=== PATIENT | male | born 1960 | race Two or more races ===

== ENCOUNTER 2021-05-18 06:26 | Observation (INO) | payer OTHER ==
[2021-05-17 13:26] LABS: COVID AG,FIA SOURCE NASOPHARYNGEAL
[2021-05-17 13:28] LABS: BASOPHILS % (AUTO) 0.6 % (0.0-2.0); EOSINOPHILS % (AUTO) 1.6 % (1.0-6.0); HEMATOCRIT 43.9 % (41-53); HEMOGLOBIN 14.9 g/dL (13.5-17.5); LYMPHOCYTES # (AUTO) 1.5 K/uL (1.0-4.8); LYMPHOCYTES % (AUTO) 26.2 % (22.0-44.0); MEAN CORPUSCULAR HGB CONC 33.9 G/dL (31.0-37.0); MEAN CORPUSCULAR VOLUME 89 fL (80-100); MONOCYTES # (AUTO) 0.5 K/uL (0.1-1.0); MONOCYTES % (AUTO) 9.4 % (2.0-9.0); NEUTROPHILS # (AUTO) 3.6 K/uL (1.8-7.7); NEUTROPHILS % (AUTO) 62.2 % (40.0-70.0); PLATELET COUNT (AUTO) 142 K/uL (150-450); RED BLOOD CELL COUNT(AUTO) 4.96 MIL/uL (4.50-5.90); RED CELL DISTRIBUTION WIDTH 13.2 % (11.5-14.5)
[2021-05-17 13:36] LABS: ANION GAP 10 mmol/L (8-16); CALCIUM, TOTAL 8.8 mg/dL (8.8-10.5); CARBON DIOXIDE 24 mmol/L (22-29); CHLORIDE 104 mmol/L (98-107); CREATININE 0.73 mg/dL (0.60-1.30); GLOMERULAR FILTR. RATE CALC > 60 mL/min (>60); GLUCOSE,RANDOM 134 mg/dL (70-110); POTASSIUM 4.7 mmol/L (3.5-5.1); SODIUM SERUM 138 mmol/L (136-145); UREA NITROGEN, BLOOD 18 mg/dL (7-18)
[2021-05-17 13:40] LABS: PROTHROMBIN TIME 10.7 SEC (9.4-11.6)
[~2021-05-18] VITALS: Ht 170.2 cm; Wt 84.3 kg
[2021-05-18] VITALS (8 sets, daily range): BP systolic 135–177; BP diastolic 72–96
[~2021-05-18 06:26] MED LIST: ASPI-1444 PO; ATOR40TA71 PO; CARV12.530 PO; CHOL200016 PO; CHOL500013 PO; CLOP75TA32 PO; FERR325T23 PO; GABA-529 PO; ISOS30TA92 PO; LOSA50TA37 PO; METF-446 PO; OMEP20CA12 PO; SITA25 PO; SPIR-37 PO
[2021-05-18] MEDS ORDERED: SODIUM CHLORIDE 0.9% 1,000 ML ONE (06:54)
[2021-05-18] MEDS ORDERED: SODIUM BICARBONATE 50 MEQ/50 ML VIAL ONE (07:10)
[2021-05-18] MEDS ORDERED: HEPARIN SODIUM 1000 UNITS/NS 1,000 ML ONE (07:10)
[2021-05-18] MEDS ORDERED: LIDOCAINE/PF 1% 30 ML VIAL ONE (07:10)
[2021-05-18] MEDS ORDERED: IOHEXOL 300 MG/ML 50 ML VIAL ONE (07:10)
[2021-05-18] MEDS ORDERED: IOHEXOL 300 MG/ML 150 ML VIAL ONE (07:10)
[2021-05-18] MEDS: SODIUM CHLORIDE 0.9% 1,000 ML IV SCH ×2 (07:54→20:50)
[2021-05-18] MEDS ORDERED: ASPIRIN 325 MG TABLET PO ONE (08:00)
[2021-05-18 08:11] LABS: GLUCOMETER DEV NAME(LOC) SDS.; GLUCOSE,POINT OF CARE 168 MG/DL (70-110)
[2021-05-18] MEDS ORDERED: FINA-27 PO (08:28)
[2021-05-18] MEDS ORDERED: FAMO20 PO (08:28)
[2021-05-18] MEDS ORDERED: MIDAZOLAM HCL 2 MG/2 ML VIAL ONE (10:38)
[2021-05-18] MEDS ORDERED: FentaNYL CITRATE PF 100 MCG/2 ML VIAL ONE ×2 (10:38→10:53)
[2021-05-18] MEDS ORDERED: HEPARIN SODIUM 1000 UNITS/NS 1,000 ML IARTER ONE (11:00)
[2021-05-18] MEDS ORDERED: IOHEXOL 300 MG/ML 150 ML VIAL IARTER ONE (11:00)
[2021-05-18] MEDS ORDERED: FentaNYL CITRATE PF 100 MCG/2 ML VIAL IVP ONE ×2 (11:00)
[2021-05-18] MEDS ORDERED: MIDAZOLAM HCL 2 MG/2 ML VIAL IVP ONE ×2 (11:00)
[2021-05-18] MEDS ORDERED: LIDOCAINE 1% 30 ML/SOD BICARB 8.4% 4 ML SQ ONE (11:00)
[2021-05-18] MEDS ORDERED: IOHEXOL 300 MG/ML 100 ML VIAL ONE (11:14)
[2021-05-18] MEDS ORDERED: TICAGRELOR 90 MG TABLET ONE (11:28)
[2021-05-18] MEDS ORDERED: IOHEXOL 300 MG/ML 100 ML VIAL IARTER ONE (11:30)
[2021-05-18] MEDS ORDERED: HEPARIN SODIUM,PORCINE 5,000 UNITS/ML VIAL IVP ONE (11:30)
[2021-05-18] MEDS ORDERED: TICAGRELOR 90 MG TABLET PO ONE (11:45)
[2021-05-18] MEDS ORDERED: FAMOTIDINE 20 MG TABLET PO PRN (11:45)
[2021-05-18] MEDS ORDERED: DEXTROSE 50%-WATER 25 GM/50 ML SYRINGE IVP PRN ×2 (12:00→19:30)
[2021-05-18] MEDS ORDERED: INSULIN LISPRO 100 UNITS/ML SQ PRN (12:00)
[2021-05-18] MEDS ORDERED: ACETAMINOPHEN 325 MG TABLET PO PRN (19:30)
[2021-05-18] MEDS ORDERED: ALBUTEROL SULFATE 2.5 MG/0.5 ML NEB SOLUTION NEB PRN (19:30)
[2021-05-18] MEDS ORDERED: BISACODYL 10 MG RECTAL RECTAL SUPPOSITORY PR PRN (19:30)
[2021-05-18] MEDS ORDERED: ZOLPIDEM TARTRATE 5 MG TABLET PO PRN (19:30)
[2021-05-18] MEDS ORDERED: MAGNESIUM HYDROXIDE SUSPENSION 30 ML UDCUP PO PRN (19:30)
[2021-05-18] MEDS ORDERED: MORPHINE SULFATE 2 MG/ML SYRINGE IVP PRN (19:30)
[2021-05-18] MEDS ORDERED: HYDROCODONE/ACETAMINOPHEN 5-325 MG TABLET PO PRN (19:30)
[2021-05-18] MEDS ORDERED: IPRATROPIUM BROMIDE 0.5 MG/2.5 ML NEB SOLUTION NEB PRN (19:30)
[2021-05-18] MEDS ORDERED: ONDANSETRON HCL 4 MG/2 ML VIAL IVP PRN (19:30)
[2021-05-18] MEDS: TICAGRELOR 90 MG TABLET PO SCH (20:48)
[2021-05-18] MEDS: CARVEDILOL 12.5 MG TABLET PO SCH (20:49)
[2021-05-18] MEDS: DOCUSATE SODIUM 100 MG CAPSULE PO SCH (20:49)
[2021-05-18] MEDS: GABAPENTIN 100 MG CAPSULE PO SCH (20:49)
[2021-05-18] MEDS: INSULIN LISPRO 100 UNITS/ML SQ PRN (20:52)
[2021-05-19] VITALS (7 sets, daily range): BP systolic 143–152; BP diastolic 69–96
[2021-05-19] MEDS: HEPARIN SODIUM,PORCINE 5,000 UNITS/ML VIAL SQ SCH ×2 (00:27→08:00)
[2021-05-19 05:18] LABS: GLUCOMETER DEV NAME(LOC) 5N.1C; GLUCOSE,POINT OF CARE 240 MG/DL (70-110)
[2021-05-19 05:19] LABS: GLUCOMETER DEV NAME(LOC) 5N.3; GLUCOSE,POINT OF CARE 139 MG/DL (70-110)
[2021-05-19] MEDS: INSULIN LISPRO 100 UNITS/ML SQ PRN (06:00)
[2021-05-19] MEDS ORDERED: OMEPRAZOLE 20 MG CAPSULE PO SCH (06:30)
[2021-05-19 06:37] LABS: GLUCOMETER DEV NAME(LOC) 5S.2B; GLUCOSE,POINT OF CARE 174 MG/DL (70-110)
[2021-05-19] MEDS ORDERED: FERROUS SULFATE 325 MG EC TABLET PO SCH (08:00)
[2021-05-19] MEDS ORDERED: ASPIRIN 81 MG DR TABLET PO SCH (09:00)
[2021-05-19] MEDS ORDERED: LOSARTAN POTASSIUM 50 MG TABLET PO SCH (09:00)
[2021-05-19] MEDS ORDERED: FINASTERIDE 5 MG TABLET PO SCH (09:00)
[2021-05-19] MEDS ORDERED: ATORVASTATIN CALCIUM 40 MG TABLET PO SCH (09:00)
[2021-05-19] MEDS ORDERED: ISOSORBIDE MONONITRATE 30 MG ER TABLET PO SCH (09:00)
[2021-05-19] MEDS ORDERED: SitaGLIPtin PHOSPHATE 25 MG TABLET PO SCH (09:00)
[2021-05-19] MEDS: DOCUSATE SODIUM 100 MG CAPSULE PO SCH (09:00)
[2021-05-19] MEDS: TICAGRELOR 90 MG TABLET PO SCH (09:07)
[2021-05-19] MEDS: CARVEDILOL 12.5 MG TABLET PO SCH (09:07)
[2021-05-19] MEDS: GABAPENTIN 100 MG CAPSULE PO SCH (09:07)
[2021-05-19] MEDS: SODIUM CHLORIDE 0.9% 1,000 ML IV SCH (11:35)
[2021-05-19] MEDS ORDERED: TICA90TA PO (13:56)
[2021-05-19 21:46] LABS: GLUCOMETER DEV NAME(LOC) 5N.1C; GLUCOSE,POINT OF CARE 132 MG/DL (70-110)
== END 2021-05-19 14:55 | disposition home or self-care (01) ==
LOC: CATHLAB 06:26 → INTOOBSV 06:27 → 5S 06:27 → EDSEX 09:00
PROVIDERS: ADMIT Hospitalist; ATTEND Specialist
DX: I25.118 Atherosclerotic heart disease of native coronary artery with other forms of angina pectoris (principal); I10 Essential (primary) hypertension; E78.5 Hyperlipidemia, unspecified; E11.9 Type 2 diabetes mellitus without complications; N40.0 Benign prostatic hyperplasia without lower urinary tract symptoms; Z79.82 Long term (current) use of aspirin; Z79.84 Long term (current) use of oral hypoglycemic drugs; Z79.899 Other long term (current) drug therapy; Z95.818 Presence of other cardiac implants and grafts
CPT/HCPCS: 36415; 80048; 82962 ×2; 85025; 85610; 85730; 87081; 87426; 92920; 92928; 93005; 93458; 96360; 96361 ×2; 96372 ×2; 99219 ×2; C1760; C1874; C1887; C9803; J1644 ×2; J2250; J3010; J3490 ×2; J7030; Q9967 ×2